=== PATIENT | female | born 1935 | race American Indian/Alaskan Native ===

== ENCOUNTER 2020-09-19 17:19 | Emergency (ER) | payer MEDICARE ==
[2020-09-19] MEDS ORDERED: SODIUM CHLORIDE 0.9% 1000 ML 1,000 ML IV ONE (18:36)
--- NOTE | 2020-09-19 18:36 | Emergency Department Report ---
ED Abdominal Pain HPI - General Chief Complaint: Abdominal Pain Stated Complaint: GI BLOCK Time Seen by Provider: 09/19/20 18:00 Source: EMS Mode of arrival: Ambulatory Limitations: No Limitations - History of Present Illness Initial Comments: 85-year-old female presents to ED with abdominal pain x3 days. Son at bedside giving history. He reports patient has slight dementia. He reports that patient has had some abdominal distention and pain for the last 3 days. Patient was seen by her PCP approximately 1 week ago for constipation. She has been taking medication for constipation which has improved her bowels. Son states patient initially was not having bowel movements at all, but is now having marble sized small stool. He reports patient was also given prescription for antibiotics for UTI as well that she is currently taking. Patient states pain is diffuse when it occurs. Denies any pain at this time. MD Complaint: abdominal pain -: days(s) (3) Location: diffuse Radiation: none Migration to: no migration Severity: moderate Severity scale (0 -10): 1 Quality: aching Consistency: intermittent Improves With: nothing Worsens With: eating Associated Symptoms: nausea, vomiting, constipation. denies: diarrhea - Related Data Previous Rx's Medication Instructions Recorded Last Taken Type Dicyclomine [Bentyl] 20 mg PO QID PRN #20 tablet 09/19/20 Unknown Rx Ondansetron [Zofran Odt] 4 mg PO Q8HR PRN #20 tab.rapdis 09/19/20 Unknown Rx Allergies Allergy/AdvReac Type Severity Reaction Status Date / Time orange Allergy Hives Verified 11/30/18 20:53 bleech Allergy Hives Uncoded 11/30/18 20:53 IVP dye Allergy Anaphylaxis Uncoded 11/30/18 20:53 ED Review of Systems ROS: Stated complaint: GI BLOCK Other details as noted in HPI Comment: All other systems reviewed and negative Constitutional: denies: fever Gastrointestinal: abdominal pain, nausea, vomiting, constipation. 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) - Social History Smoking Status: Never Smoker Substance Use Type: None - Medications Home Medications: Home Medications Medication Instructions Recorded Confirmed Last Taken Type Dicyclomine [Bentyl] 20 mg PO QID PRN #20 tablet 09/19/20 Unknown Rx Ondansetron [Zofran Odt] 4 mg PO Q8HR PRN #20 tab.rapdis 09/19/20 Unknown Rx ED Physical Exam - General Limitations: No Limitations General appearance: alert, in no apparent distress - Head Head exam: Present: atraumatic, normocephalic - Eye Eye exam: Present: normal appearance, EOMI - ENT ENT exam: Present: mucous membranes moist - Neck Neck exam: Present: normal inspection - Respiratory Respiratory exam: Present: normal lung sounds bilaterally. Absent: respiratory distress - Cardiovascular Cardiovascular Exam: Present: regular rate, normal rhythm - GI/Abdominal GI/Abdominal exam: Present: soft, distended, tenderness (Mild diffuse) - Extremities Exam Extremities exam: Present: normal inspection - Neurological Exam Neurological exam: Present: alert. Absent: oriented X3 (Oriented to person and place) - Psychiatric Psychiatric exam: Present: normal affect, normal mood - Skin Skin exam: Present: warm, dry, intact, normal color ED Course Vital Signs 09/19/20 09/19/20 17:48 22:59 Temperature 98 F Pulse Rate 79 83 Respiratory 18 17 Rate Blood Pressure 135/71 Blood Pressure 135/71 133/61 [Right] O2 Sat by Pulse 100 98 Oximetry ED Medical Decision Making - Lab Data Result diagrams: 09/19/20 18:31 09/19/20 18:31 - Radiology Data Radiology results: report reviewed, image reviewed - Medical Decision Making Patient comfortable throughout ED stay. No emesis here in ED. Vital signs are normal and stable. Labs normal except for some mild renal insufficiency. Patient given 1 L bolus of fluids. CT scan does not show any acute abnormalities. Son reports patient is currently on antibiotics for UTI. Advised him to finish course of antibiotics. Patient will not require admission at this time. Outpatient follow-up advised. Prescriptions given. Return precautions given. - Differential Diagnosis Constipation, bowel obstruction, UTI Critical care attestation.: If time is entered above; I have spent that time in minutes in the direct care of this critically ill patient, excluding procedure time. ED Disposition Clinical Impression: Abdominal pain Disposition: DC-01 TO HOME OR SELFCARE Is pt being admited?: No Condition: Stable Instructions: Abdominal Pain (ED) Prescriptions: Dicyclomine [Bentyl] 20 mg PO QID PRN #20 tablet PRN Reason: abdominal pain Ondansetron [Zofran Odt] 4 mg PO Q8HR PRN #20 tab.rapdis PRN Reason: Vomiting Referrals: DALE STEPHEN DO [Primary Care Provider] - 3-5 Days [facility] [Provider Group] - 3-5 Days Time of Disposition: 22:42
[2020-09-19 19:11] LABS: Basophils # (Auto) 0.1 K/mm3 (0.0-0.1); Basophils % (Auto) 0.7 % (0.0-1.8); Eosinophils # (Auto) 0.4 K/mm3 (0.0-0.4); Eosinophils % (Auto) 3.9 % (0.0-4.3); Hematocrit 38.1 % (30.3-42.9); Hemoglobin 12.4 gm/dl (10.1-14.3); Lymphocytes # (Auto) 1.7 K/mm3 (1.2-5.4); Lymphocytes % (Auto) 17.2 % (13.4-35.0); Mean Corpuscular HGB Conc 33 % (30-34); Mean Corpuscular Volume 96 fl (79-97); Monocytes # (Auto) 0.7 K/mm3 (0.0-0.8); Monocytes % (Auto) 7.6 % (0.0-7.3); Platelet Count 176 K/mm3 (140-440); Red Blood Count 3.96 M/mm3 (3.65-5.03); Red Cell Distribution Width 13.8 % (13.2-15.2)
[2020-09-19 19:29] LABS: Calcium 9.3 mg/dL (8.4-10.2)
[2020-09-19 19:33] LABS: Alanine Aminotransferase 12 units/L (7-56); Bilirubin,Direct < 0.2 mg/dL (0-0.2)
--- NOTE | 2020-09-19 20:11 | Cat Scan Report ---
CT abdomen pelvis wo con INDICATION: abd pain, vomiting. TECHNIQUE: All CT scans at this location are performed using CT dose reduction for ALARA by means of automated e xposure control. COMPARISON: 12/01/2018 FINDINGS: l lung bases are clear of acute disease. Aortic valve prosthesis. Cholecystectomy. Elevation of the right hemidiaphragm. Liver, spleen, pancreas, kidneys and adrenals are negative. Abdominal aorta is atherosclerotic but normal in size. No adenopathy. Pelvis Normal appendix. Urinary bladder and distal ureters are negative. Uterus is absent. Moderate sigmoid diverticulosis but no diverticulitis. No significant bowel distention or other bowel abnormalities. IMPRESSION: 1. No acute abnormalities. Signer Name: Liam Fernandes MD Signed: 09/19/2020 8:07 PM Workstation Name: [id number]
[2020-09-19 23:00] VITALS: BP 133/61
== END 2020-09-19 23:00 | disposition home or self-care (01) ==
LOC: ED 17:19
DX: R10.84 Generalized abdominal pain (principal); R11.2 Nausea with vomiting, unspecified; K59.00 Constipation, unspecified; I10 Essential (primary) hypertension; Z98.890 Other specified postprocedural states; Z79.899 Other long term (current) drug therapy; Z91.018 Allergy to other foods; Z88.8 Allergy status to other drugs, medicaments and biological substances
CPT/HCPCS: 36415; 74176; 80048; 80076; 85025; 96360; 99284; J7030